=== PATIENT | female | born 1945 | race Caucasian/White ===

== ENCOUNTER 2022-10-15 12:45 | Emergency (ER) | payer MEDICARE, BC ==
[2022-10-15] MEDS: Sodium Chloride 0.9% 10 ML Syringe FLUSH PRN (13:16)
[2022-10-15] MEDS: Sodium Chloride 0.9% 1,000 ML IV ONE (13:38)
[2022-10-15 13:47] LABS: ANION GAP 14.2 mmol/L (5-15)
[2022-10-15] MEDS: Potassium Chloride 20 MEQ Tab.ER PO ONE (14:08)
== END 2022-10-15 15:10 | disposition home or self-care (01) ==
LOC: MERGE 12:45 → KA.ED 12:45
DX: R19.7 Diarrhea, unspecified (principal); E86.0 Dehydration; E87.6 Hypokalemia; R63.0 Anorexia; E87.1 Hypo-osmolality and hyponatremia; Z91.018 Allergy to other foods; Z88.0 Allergy status to penicillin; Z88.8 Allergy status to other drugs, medicaments and biological substances; Z88.2 Allergy status to sulfonamides; Z79.899 Other long term (current) drug therapy
CPT/HCPCS: 80053; 85025; 96360; 99284; 99284-25; A9270-GY; J3490; J7030

== ENCOUNTER 2024-03-02 08:12 | Emergency (ER) | payer MEDICARE, BC ==
[2024-03-02] MEDS: Sodium Chloride 0.9% 1,000 ML IV ONE (08:33)
[2024-03-02] MEDS: Ondansetron 4 MG/2 ML SDV IVPUSH ONE (08:37)
[2024-03-02] MEDS ORDERED: Sodium Chloride 0.9% 10 ML Syringe FLUSH PRN (09:30)
[2024-03-02 09:36] LABS: BASOPHILS ABSOLUTE AUTO 0.01 10^3/uL (0.00-0.10); BASOPHILS PERCENT AUTO 0.1 % (0.0-1.0); EOSINOPHILS ABSOLUTE AUTO 0.12 10^3/uL (0.10-0.30); EOSINOPHILS PERCENT AUTO 1.7 % (1.0-3.0); HEMATOCRIT 40.8 % (37.0-47.0); HEMOGLOBIN 14.1 g/dL (12.0-16.0); IMMATURE GRAN ABSOLUTE AUTO 0.01 10^3/uL (0.00-0.50); IMMATURE GRAN PERCENT AUTO 0.1 % (0.0-5.0); LYMPHOCYTES ABSOLUTE AUTO 1.16 10^3/uL (1.00-4.00); MEAN CORPUSCULAR HGB CONC 34.6 g/dL (32.0-36.0); MEAN CORPUSCULAR VOLUME 89.7 fL (82.0-92.0); MEAN PLATELET VOLUME 8.7 fL (7.4-10.4); MONOCYTES PERCENT AUTO 9.6 % (2.0-8.0); NEUTROPHILS ABSOLUTE AUTO 5.27 10^3/uL (2.50-7.00); NEUTROPHILS PERCENT AUTO 72.5 % (50.0-70.0); PLATELET COUNT,PLT 246 10^3/uL (150-400); RED BLOOD CELL COUNT 4.55 10^6/uL (3.80-5.50); RED CELL DISTRIBUTION WIDTH 12.2 % (11.5-14.5); WHITE BLOOD CELL COUNT,WBC 7.27 10^3/uL (5.00-10.00)
[2024-03-02 09:37] LABS: ALANINE AMINOTRANSFERASE,ALT 30 U/L (14-63); ALBUMIN 3.38 g/dL (3.40-5.00); ALKALINE PHOSPHATASE 61 U/L (46-116); ANION GAP 17.2 mmol/L (5-15); ASPARTATE AMNIOTRANSFERASE,AST 20 U/L (15-37); BILIRUBIN TOTAL 0.7 mg/dL (0.2-1.0); BLOOD UREA NITROGEN,BUN 14 mg/dL (7-18); CALCIUM 8.6 mg/dL (8.7-10.3); CARBON DIOXIDE,CO2 21.6 mmol/L (21.0-32.0); CHLORIDE,CL 102 mmol/L (98-107); CREATININE 0.82 mg/dL (0.51-1.17); GLUCOSE RANDOM 124 mg/dL (70-140); LIPASE 25 U/L (16-77); POTASSIUM,K 3.8 mmol/L (3.5-5.1); PROTEIN TOTAL,TP 6.4 g/dL (6.4-8.2); SODIUM,NA 137 mmol/L (136-145)
[2024-03-02 09:38] LABS: ESTIMATED GFR 73 mL/min (>=60)
[2024-03-02 09:48] LABS: BILIRUBIN,URINE NEGATIVE (NEGATIVE); COLOR,URINE YELLOW (YELLOW); GLUCOSE,URINE NEGATIVE (NEGATIVE); KETONES,URINE 40 mg/dL (NEGATIVE); LEUKOCYTE ESTERASE,URINE TRACE (NEGATIVE); NITRITE,URINE NEGATIVE (NEGATIVE); OCCULT BLOOD,URINE TRACE-INTACT (NEGATIVE); UROBILINOGEN,URINE 0.2 E.U./dL (0.2-1.0)
[2024-03-02 09:56] LABS: APPEARANCE,URINE SLIGHTLY CLOUDY (CLEAR); BACTERIA,URINE RARE /HPF (NONE TO FEW); PROTEIN,URINE TRACE mg/dL (NEGATIVE)
[2024-03-02 09:57] LABS: EPITHELIAL CELLS,URINE RARE /LPF; MUCUS,URINE FEW /LPF (NEGATIVE)
[2024-03-02] MEDS: Ondansetron 4 MG Tab.DIS PO ONE (10:45)
== END 2024-03-02 11:05 | disposition home or self-care (01) ==
LOC: KA.ED 08:12
DX: K52.9 Noninfective gastroenteritis and colitis, unspecified (principal); Z91.018 Allergy to other foods; Z88.0 Allergy status to penicillin; Z88.4 Allergy status to anesthetic agent; Z88.2 Allergy status to sulfonamides; Z88.8 Allergy status to other drugs, medicaments and biological substances; Z79.899 Other long term (current) drug therapy
CPT/HCPCS: 80053; 81001; 83690; 85025; 96361; 96374; 99284; 99284-25; A9270-GY; J2405; J7030

== ENCOUNTER 2024-08-30 13:43 | Emergency (ER) | payer MEDICARE, BC ==
[2024-08-30] MEDS: HYDROmorphone 1 MG/ML Syringe IVPUSH ONE (14:10)
[2024-08-30] MEDS: HYDROmorphone 1 MG/ML Syringe ONE (14:16)
[2024-08-30 14:28] LABS: BASOPHILS ABSOLUTE AUTO 0.04 10^3/uL (0.00-0.10); BASOPHILS PERCENT AUTO 0.6 % (0.0-1.0); EOSINOPHILS ABSOLUTE AUTO 0.09 10^3/uL (0.10-0.30); EOSINOPHILS PERCENT AUTO 1.3 % (1.0-3.0); HEMATOCRIT 42.6 % (37.0-47.0); HEMOGLOBIN 14.4 g/dL (12.0-16.0); IMMATURE GRAN ABSOLUTE AUTO 0.04 10^3/uL (0.00-0.04); IMMATURE GRAN PERCENT AUTO 0.6 % (0.0-0.4); LYMPHOCYTES ABSOLUTE AUTO 1.69 10^3/uL (1.00-4.00); LYMPHOCYTES PERCENT AUTO 23.5 % (20.0-40.0); MEAN CORPUSCULAR HEMOGLOBIN 31.6 pg (27.0-31.0); MEAN CORPUSCULAR HGB CONC 33.8 g/dL (32.0-36.0); MEAN CORPUSCULAR VOLUME 93.4 fL (82.0-92.0); MEAN PLATELET VOLUME 8.7 fL (7.4-10.4); MONOCYTES PERCENT AUTO 9.7 % (2.0-8.0); NEUTROPHILS ABSOLUTE AUTO 4.63 10^3/uL (2.50-7.00); NEUTROPHILS PERCENT AUTO 64.3 % (50.0-70.0); PLATELET COUNT,PLT 212 10^3/uL (150-400); RED BLOOD CELL COUNT 4.56 10^6/uL (3.80-5.50); RED CELL DISTRIBUTION WIDTH 12.9 % (11.5-14.5); WHITE BLOOD CELL COUNT,WBC 7.19 10^3/uL (5.00-10.00)
[2024-08-30] MEDS ORDERED: Ondansetron 4 MG/2 ML SDV IVPUSH ONE (14:30)
[2024-08-30 14:36] LABS: CARBON DIOXIDE,CO2 24.6 mmol/L (21.0-32.0); CREATININE 0.91 mg/dL (0.51-1.17); EST CRCL DRUG DOSING (CG) 35.42 mL/min; POTASSIUM,K 4.6 mmol/L (3.5-5.1)
[2024-08-30 15:28] LABS: APPEARANCE,URINE SLIGHTLY CLOUDY (CLEAR); BILIRUBIN,URINE NEGATIVE (NEGATIVE); COLOR,URINE LIGHT YELLOW (YELLOW); GLUCOSE,URINE NEGATIVE (NEGATIVE); KETONES,URINE NEGATIVE (NEGATIVE); LEUKOCYTE ESTERASE,URINE MODERATE (NEGATIVE); NITRITE,URINE NEGATIVE (NEGATIVE); OCCULT BLOOD,URINE TRACE-INTACT (NEGATIVE); PH,URINE 5.5 (5.0-9.0); PROTEIN,URINE NEGATIVE (NEGATIVE); UROBILINOGEN,URINE 0.2 E.U./dL (0.2-1.0)
[2024-08-30 15:38] LABS: BACTERIA,URINE RARE /HPF (NONE TO FEW); EPITHELIAL CELLS,URINE FEW /LPF; RBC,URINE 0-5 /HPF (0-5)
[2024-08-30] MEDS: cefTRIAXone 1 GM Vial IVPUSH ONE (15:52)
== END 2024-08-30 16:15 | disposition home or self-care (01) ==
LOC: KA.ED 13:43
DX: M41.80 Other forms of scoliosis, site unspecified (principal); R35.0 Frequency of micturition; R39.15 Urgency of urination; Z88.8 Allergy status to other drugs, medicaments and biological substances; Z88.0 Allergy status to penicillin; Z88.2 Allergy status to sulfonamides; Z91.018 Allergy to other foods; Z79.899 Other long term (current) drug therapy; Z79.1 Long term (current) use of non-steroidal anti-inflammatories (NSAID)
CPT/HCPCS: 36415; 72100; 80048; 81001; 85025; 87086; 96374; 96375; 99283-25; 99284; J0696; J1171

== ENCOUNTER 2025-04-05 12:50 | Emergency (ER) | payer MEDICARE, BC ==
[2025-04-05 13:44] LABS: APPEARANCE,URINE SLIGHTLY CLOUDY (CLEAR); GLUCOSE,URINE NEGATIVE (NEGATIVE); OCCULT BLOOD,URINE TRACE-LYSED (NEGATIVE)
[2025-04-05] MEDS: Ondansetron 4 MG/2 ML SDV IVPUSH ONE (13:44)
[2025-04-05] MEDS: Sodium Chloride 0.9% 10 ML Syringe FLUSH PRN (13:49)
[2025-04-05 13:51] LABS: EPITHELIAL CELLS,URINE MANY /LPF; SQUAMOUS EPITHELIAL CELLS,UR MANY /HPF (NOT SEEN)
[2025-04-05] MEDS: Acetaminophen/HYDROcodone 325-5 MG Tab PO ONE (14:24)
== END 2025-04-05 14:40 | disposition home or self-care (01) ==
LOC: KA.ED 12:50
DX: M54.50 Low back pain, unspecified (principal); G89.29 Other chronic pain; Z88.0 Allergy status to penicillin; Z88.2 Allergy status to sulfonamides; Z91.048 Other nonmedicinal substance allergy status; Z88.8 Allergy status to other drugs, medicaments and biological substances; Z79.899 Other long term (current) drug therapy
CPT/HCPCS: 81001; 96374; 96375; 99283-25; 99284; A9270-GY; J1171; J2405